=== PATIENT | female | born 1995 ===

== ENCOUNTER 2022-06-29 08:16 | Outpatient (CLI) | payer OTHER, SELFPAY | END 2022-06-29 08:17 | disposition home or self-care (01) | LOC: FRMREF 08:17 | PROVIDERS: PCP Physician Assistant Medical; Visit Provider Physician Assistant Medical | DX: R30.0 Dysuria (principal) | CPT/HCPCS: 87086 ==

== ENCOUNTER 2023-01-26 11:26 | Outpatient (CLI) | payer OTHER, SELFPAY | END 2023-01-26 11:27 | disposition home or self-care (01) | PROVIDERS: PCP Physician Assistant Medical; Visit Provider Physician Assistant Medical | DX: R63.5 Abnormal weight gain (principal); R19.7 Diarrhea, unspecified | CPT/HCPCS: 80053; 83516; 84443 ==

== ENCOUNTER 2023-03-06 11:37 | Outpatient (CLI) | payer OTHER, SELFPAY ==
--- OUTSIDE RECORDS SUMMARY | 2023-03-09 08:36 | XMS_ITS | Patient Health Record ---
Author Name Unknown Organization [facility] Address [address] [place], [place] [id number] Care Team Providers Care Water Treatment Operator Name Role Phone Rashida Cai Primary Care Provider Sisi Boudreaux Unavailable [phone] ALLERGIES No Known Allergies RESULTS Component Value Reference Range Notes COMPREHENSIVE METABOLIC PANE L Reviewed date:07/27/2022 08:08:01 AM Interpretation: Performing Lab:JIMMY, [facility] [id number], [place] [id number] Jeremy Winn Notes/Report: GLUCOSE 90 65-99 mg/dL Fasting reference interval UREA NITROGEN (BUN) 15 7-25 mg/dL CREATININE 0.74 0.50-0.96 mg/dL EGFR 114 > OR = 60 mL/min/1.73m2 The eGFR is based on the CKD-EPI 2020 equation. To calculate the new eGFR from a previous Creatinine or Cystatin C result, go to https://www.kidney.org/pr ofessionals/ kdoqi/gfr%5Fcalculator BUN/CREATININE RATIO NOT APPLICABLE 6-22 (calc) SODIUM 140 135-146 mmol/L POTASSIUM 4.2 3.5-5.3 mmol/L CHLORIDE 105 98-110 mmol/L CARBON DIOXIDE 27 20-32 mmol/L CALCIUM 10.4 8.6-10.2 mg/dL PROTEIN, TOTAL 8.3 6.1-8.1 g/dL ALBUMIN 5.6 3.6-5.1 g/dL GLOBULIN 2.7 1.9-3.7 g/dL (calc) ALBUMIN/GLOBULIN RATIO 2.1 1.0-2.5 (calc) BILIRUBIN, TOTAL 0.5 0.2-1.2 mg/dL ALKALINE PHOSPHATASE 67 31-125 U/L AST 21 10-30 U/L ALT 17 6-29 U/L CBC (INCLUDES DIFF/PLT) Reviewed date:07/26/2022 10:45:21 AM Interpretation: Performing Lab:JIMMY [facility] [id number] [facility] HospitalAvoqLP[address] Jeremy Winn Notes/Report: WHITE BLOOD CELL COUNT 4.3 3.8-10.8 Thousand/ uL RED BLOOD CELL COUNT 4.64 3.80-5.10 Million/uL HEMOGLOBIN 14.8 11.7-15.5 g/dL HEMATOCRIT 42.9 35.0-45.0 % MCV 92.5 80.0-100.0 fL MCH 31.9 27.0-33.0 pg MCHC 34.5 32.0-36.0 g/dL RDW 11.9 11.0-15.0 % PLATELET COUNT 339 140-400 Thousand/uL MPV 10.7 7.5-12.5 fL ABSOLUTE NEUTROPHILS [phone] cells/uL ABSOLUTE LYMPHOCYTES 6086 507-4169 cells/uL ABSOLUTE MONOCYTES 331 200-950 cells/uL ABSOLUTE EOSINOPHILS 99 15-500 cells/uL ABSOLUTE BASOPHILS 30 0-200 cells/uL NEUTROPHILS 55.7 LYMPHOCYTES 33.6 MONOCYTES 7.7 EOSINOPHILS 2.3 BASOPHILS 0.7 INSULIN Reviewed date:07/26/2022 10:45:06 AM Interpretation: Performing Lab:[facility] [id number] [facility] HospitalQvsoKZ[address] Jeremy Winn Notes/Report: INSULIN 5.8 Reference Range < or = 18.4 Risk: Optimal < or = 18.4 Moderate NA High >18.4 Adult cardiovascular event risk category cut points (optimal, moderate, high) are based on Insulin Reference Interval studies performed at [facility] in 2021. VITAMIN B12 Reviewed date:07/26/2022 10:44:15 AM Interpretation: Performing Lab:[facility] [id number] [facility] HospitalKzzsWT[address] Jeremy Winn Notes/Report: VITAMIN B12 895 131-3596 pg/mL Pap with reflex HPV if ASCUS (under 30 yrs) Reviewed date:02/08/2023 07:44:11 AM Interpretation: Performing Lab:[facility], [facility], [id number] Jeremy Winn Notes/Report: CLINICAL INFORMATION: None g iven LMP: 01/13/23 PREV. PAP: NONE GIVEN PREV. BX: NONE GIVEN SOURCE: Cervix STATEMENT OF ADEQUACY: Satisfactory for evaluation. Endocervical/transformati on zone component absent. INTERPRETATION/RESULT: Cytology Results: Negative for intraepithelial lesion or malignancy. COMMENT: This Pap test has been evaluated with computer assisted technology. CAR PACKER: ELIAZAR LIN(ASCP) CT Screening location: [place] [address] COMMENT EXPLANATORY NOTE: The Pap is a screening test for cervical cancer. It is not a diagnostic test and is subject to false negative and false positive results. It is most reliable when a satisfactory sample, regularly obtained, is submitted with relevant clinical findings and history, and when the Pap result is evaluated along with historic and current clinical information. Testosterone, Free (IH) Reviewed date:04/05/2022 02:36:18 PM Interpretation: Performing Lab: Notes/Report: Access 2 ([id number]), Access 2 [facility] Fr Testo 1.62 0.20 to 5.50 pg/mL Sex Hormone Binding Globulin (IH) Reviewed date:04/05/2022 02:50:32 PM Interpretation: Performing Lab: Notes/Report: Access 2 ([id number]), Access 2 [facility] SHBG 79 13 to 136 nmol/L TSH (IH) Reviewed date:04/05/2022 02:32:46 PM Interpretation: Performing Lab: Notes/Report: Access 2 ([id number]), Access 2 [facility] TSH3 1.75 0.45 to 5.33 uIU/mL Testosterone, Total (IH) Reviewed date:04/05/2022 02:36:46 PM Interpretation: Performing Lab: Notes/Report: Access 2 ([id number]), Access 2 [facility] Testo 37 70 to 150 ng/dL L T4, FREE Reviewed date:04/04/2022 08:10:44 AM Interpretation: Performing Lab:[facility], [facility] [id number], [place] [id number] Jeremy Winn M.D. Notes/Report: T4, FREE 1.1 0.8-1.8 ng/dL HEMOGLOBIN A1c Reviewed date:04/04/2022 08:10:55 AM Interpretation: Performing Lab:JIMMY, [facility] [address], [place]gaXnqxCB[address] Jeremy Winn M.D. Notes/Report: HEMOGLOBIN A1c 4.5 <5.7 % of total Hgb For the purpose of screening for the presence of diabetes: <5.7% Consistent with the absence of diabetes 5.7-6.4% Consistent with increased risk for diabetes (prediabetes) > or =6.5% Consistent with diabetes This assay result is consistent with a decreased risk of diabetes. Currently, no consensus exists regarding use of hemoglobin A1c for diagnosis of diabetes in children. According to [place] Diabetes Association (ADA) guidelines, hemoglobin A1c <7.0% represents optimal control in non- diabetic patients. Different metrics may apply to specific patient populations. Standards of Medical Care in Diabetes(ADA). REASON FOR REFERRAL No Information MEDICATIONS Medication SIG (Take, Route, Frequency, Duration) Notes Start Date End Date Status Cephalexin 500 MG 1 capsule Orally BID for 7 days 07/22/2022 Not-Taking Clindamycin Phosphate 1 % 1 application Externally twice a day to affected area for 30 days 02/02/2023 Active Spironolactone 25 MG 1 tablet Orally Onc e a day for 90 days 07/22/2022 Not-Taking metFORMIN HCl ER 500 MG 1 tablet with ev ening meal Orally Once a day for 90 days 07/22/2022 Not-Taking Womens One Daily Act brian Zinc Active Emergen-C Immune Act brian Magnesium Active SOCIAL HISTORY Tobacco Use: Social History Observation Description Date Details (start date - stop date) Never Smoker NA - NA Sex Assigned At : Social History Observation Description Sex Assigned At Unknown Tobacco Use/Smoking Question Answer Notes Are you a nonsmoker Alcohol Screen (Audit-C) Question Answer Notes Did you have a drink containing alcohol in the p ast year? No Points 0 Interpretation Negative Tobacco use other than smoking: Question Answer Notes Are you an other tobacco user? V ape PROBLEMS Problem Type ICD Code Onset Dates Problem Status W/U Status Risk SNOMED Code Notes Problem Menorrhagia (N92.0) Active confirmed Menorrhagia (076652805) Problem Abnormal uterine bleeding (N93.9) Active confirmed Abnormal uterine bleeding (53981102835407 ) Problem PCOS (polycystic ovarian syndrome) (E28.2) Active confirmed 452323196 Problem Dysmenorrhea (N94.6) Active confirmed 504721949 Problem Insulin resistance (E88.81) Active confirmed 167421489 VITAL SIGNS Blood pressure diastolic 70 mm Hg 02/02/2023 Height 69.5 in 02/02/2023 Blood pressure systolic 114 mm Hg 02/02/2023 Weight 154 lbs 02/02/2023 BMI 22.41 kg/m2 02/02/2023 Encounters Encounter Location Date Provider Diagnosis [facility] [address] [place] [address] 02/01/2023 Rashida Lee [facility] [address] [place] [address] 02/01/2023 Rashida Lee PCOS (polycystic ovarian syndrome) E28.2 [facility] [address] [place] [address] 02/02/2023 Sisi Boudreaux Encounter for screening for malignant neoplasm of cervix Z12.4 ; Normal gynecologic examination Z01.419 ; Hidradenitis suppurativa L73.2 ; History of PCOS Z87.42 and Breast pain in female N64.4 [facility] [address] [place] [address] 05/10/2022 Rashida Lee [facility] [address] [place] [address] 06/01/2022 Rashida Lee [facility] [address] [place] [address] 09/02/2022 Rashida Lee [facility] [address] [place] [address] 04/01/2022 Rashida Lee Menorrhagia N92.0 ; Screening for diabetes mellitus Z13.1 and Thyroid disorder screen Z13.29 [facility] [address] [place] [address] 07/22/2022 Rashida Lee PCOS (polycystic ovarian syndrome) E28.2 [facility] [address] [place] [address] 02/02/2023 Sisi Kanika Encounter for annual routine gynecological examination Z01.419 [facility] [address] [place] [address] 03/30/2022 Rashida Lee [facility] [address] [place] [address] 04/01/2022 Rashida Lee Abnormal uterine bleeding N93.9 ; Dysmenorrhea N94.6 and PCOS (polycystic ovarian syndrome) E28.2 [facility] [address] [place] [address] 07/22/2022 Rashida Lee PCOS (polycystic ovarian syndrome) E28.2 ; Insulin resistance E88.81 and Suppurative hidradenitis L73.2 [facility] [address] [place] [address] 03/29/2022 Rashida Lee Abnormal uterine bleeding N93.9 [facility] [address] [place], [place] [id number] 04/04/2022 Rashida Lee [address] [place] [address] 04/11/2022 Rashida Lee [facility] [address] [place], [place] [id number] 07/12/2022 Rashida Lee [facility] [address] [place], [place] [phone] 07/27/2022 Rashida Lee ASSESSMENTS Encounter Date Diagnosis Assessment Notes Treatment Notes Treatment Clinical Notes 04/01/2022 Dysmenorrhea (ICD-10 - N94.6) 04/01/2022 Menorrhagia (ICD-10 - N92.0) 04/01/2022 Screening for diabetes mellitus (ICD-10 - Z13.1) 07/22/2022 PCOS (polycystic ovarian syndrome) (ICD-10 - E28.2) 1. Will try to help her insulin resistance will trial metformin 2. Suppurative Hidradenitis- keflex today, for the boil. Can do clindagel in the future 3. will trial spironolactone for the hair and acne 4. She has mood issues tied into the physical effects of pcos 5. Her dad is brain tumor free, still stage 4. 6. Declines control at this time. She is aware to not be on spironolactone when and could be detrimental. >30 minutes with patient day of appointment and charting 07/22/2022 Insulin resistance (ICD-10 - E88.81) 03/29/2022 Abnormal uterine bleeding (ICD-10 - N93.9) 04/01/2022 Abnormal uterine bleeding (ICD-10 - N93.9) 02/01/2023 PCOS (polycystic ovarian syndrome) (ICD-10 - E28.2) 02/02/2023 Encounter for screening for malignant neoplasm of cervix (ICD-10 - Z12.4) 02/02/2023 Encounter for annual routine gynecological examination (ICD-10 - Z01.419) 02/02/2023 Normal gynecologic examination (ICD-10 - Z01.419) 02/02/2023 Hidradenitis suppurativa (ICD-10 - L73.2) 1. Will start clindamycin gel 2. Reccommend Derm consult for further options for HS treatment. 04/01/2022 PCOS (polycystic ovarian syndrome) (ICD-10 - E28.2) 07/22/2022 Suppurative hidradenitis (ICD-10 - L73.2) 07/22/2022 PCOS (polycystic ovarian syndrome) (ICD-10 - E28.2) 04/01/2022 Thyroid disorder screen (ICD-10 - Z13.29) 02/02/2023 History of PCOS (ICD-10 - Z87.42) Discussed metformin is highly recommended for tx of PCOS but recommended not starting until after she meets with GI to investigate stomach pain/issues as metformin's main side effect is stomach pain and I don't want to obscure another diagnosis. Discussed that she may find it highly effective against weight gain and it may also help decrease HS symptoms. Discussed that we will monitor her labs yearly to make sure it is not negatively effecting liver. Will start spirinolactone for her continued hair loss and acne issues. CMP was normal with Primary MD last week. Dsicussed great importance of not getting while on thi medication becasue it can cause defects. Patient strongly declines hormonal contraceptives. Discussed importance of condoms and emergency contraception if she has a broken condom. She had filled both medications but has not started them. 02/02/2023 Breast pain in female (ICD-10 - N64.4) 1. Continue decreasing caffiene 2. Discussed Evening [place] Oil 300-400 mg in divided doses a day and/or Vitamin E 400IU x 1 month 02/02/2023 Other Reviewed recommendations for Vit D 5000IU, Ca+ and daily multi vitamin. Can try restarting Dry Prong-3's - keep them in the freezer to reduce gas/GI symptoms Preventative lab panel collected at Primary MD last week so not repeated today. Pap collected Encouraged to call with any issues or concerns as they come up. All questions answered. RTC in 1 year PLAN OF TREATMENT No Information Insurance Providers Payer Name Payer Address Payer Phone Subscriber Number Group Number Insured Name Patient Relationship to Insured Coverage Start Date Coverage End Date [facility] Commercial (Ins. Bill) [address] [address] [place], [place] [phone] [id number] Isabel Brown Self - patient is the insured MEDICAL (GENERAL) HISTORY Medical History History ICD Code kidney infections bladder infections migraines Depression/Anxiety Polycystic Ovarian Syndrome
== END 2023-03-06 11:38 | disposition home or self-care (01) ==
PROVIDERS: PCP Physician Assistant Medical; Referring Provider Physician Assistant Medical; Visit Provider Family Medicine
DX: R39.89 Other symptoms and signs involving the genitourinary system (principal); B00.1 Herpesviral vesicular dermatitis; E28.2 Polycystic ovarian syndrome; F41.9 Anxiety disorder, unspecified; F32.A Depression, unspecified
CPT/HCPCS: 87086

== ENCOUNTER 2024-05-23 14:24 | Outpatient (CLI) | payer OTHER, SELFPAY | END 2024-05-23 14:25 | disposition home or self-care (01) | LOC: NFLDREF 05-25 20:09 | PROVIDERS: PCP Family Medicine; Referring Provider Family Medicine; Visit Provider Physician Assistant Medical | DX: R35.0 Frequency of micturition (principal) | CPT/HCPCS: 87086 ==